=== PATIENT | female | born 1960 | race American Indian/Alaskan Native ===

== ENCOUNTER 2017-03-21 07:58 | Inpatient (IN) | payer SELFPAY ==
[2017-03-21] MEDS ORDERED: ZOFRAN ONE ×2 (08:26→14:42)
[2017-03-21 08:35] LABS: Basophils % (Auto) 0.6 % (0.0-1.8); Eosinophils % (Auto) 1.3 % (0.0-4.3); Hematocrit 43.3 % (30.3-42.9); Hemoglobin 14.4 gm/dl (10.1-14.3); Mean Corpuscular HGB Conc 33 % (30-34); Mean Corpuscular Hemoglobin 28 pg (28-32); Mean Corpuscular Volume 83 fl (79-97); Platelet Count 302 K/mm3 (140-440); Red Blood Count 5.21 M/mm3 (3.65-5.03); Red Cell Distribution Width 13.8 % (13.2-15.2); White Blood Count 6.1 K/mm3 (4.5-11.0)
[2017-03-21] MEDS ORDERED: ZOFRAN IV ONE ×2 (08:41→10:32)
[2017-03-21 08:49] LABS: Anion Gap 21 mmol/L; Blood Urea Nitrogen 19 mg/dL (7-17); Calcium 9.6 mg/dL (8.4-10.2); Carbon Dioxide 23 mmol/L (22-30); Chloride 98.7 mmol/L (98-107); Glucose 142 mg/dL (65-100); Potassium 4.2 mmol/L (3.6-5.0); Sodium 138 mmol/L (137-145)
--- NOTE | 2017-03-21 08:52 | XRay Report ---
CHEST ONE VIEW INDICATION: Chest pain, difficulty breathing. COMPARISON: 05/11/2011. FINDINGS: Portable, single, frontal chest radiograph demonstrates normal cardiomediastinal silhouette. Clear lungs. Slight patient rotation. Unremarkable bones. Extrinsic EKG leads. CONCLUSION: No acute disease in the chest. Thank you for the opportunity to participate in this patient's care.
[2017-03-21 10:02] LABS: Bacteria,Urine 1+ /HPF (Negative); Bilirubin,Urine NEG (Negative); Blood,Urine SM (Negative); Ketones,Urine NEG (Negative); Leukocyte Esterase,Urine TR (Negative); Nitrite,Urine NEG (Negative); Protein,Urine <15 mg/dL mg/dL (Negative); Urobilinogen,Urine < 2.0 mg/dL (<2.0)
[2017-03-21] MEDS ORDERED: NITRO-BID 2% TP ONE (10:32)
[2017-03-21] MEDS ORDERED: ASPIRIN PO ONE (10:32)
[2017-03-21] MEDS ORDERED: MORPHINE IV ONE (10:32)
[2017-03-21] MEDS ORDERED: NORMODYNE IV ONE (10:32)
[2017-03-21] MEDS ORDERED: NACL ONE (10:33)
--- NOTE | 2017-03-21 10:37 | Emergency Department Report ---
HPI - General Chief Complaint: Chest Pain Time Seen by Provider: 03/21/17 10:26 - HPI HPI: Room 26 The patient is a 56-year-old female presenting with a chief complaint of chest pain. The patient states her pain began yesterday morning but worsened 03:00 today. Patient describes pain as substernal and dull in nature. She states it "feels like someone is standing on my chest." Patient does admit to diaphoresis , shortness of breath and nausea/vomiting with chest pain. The patient currently gives her pain a score of 7/10. The patient states her last stress test occurred 6 years ago but she has never had a cardiac catheterization Location: Chest Duration: Constant since yesterday Quality: Dull Severity:7/10 Modifying factors: [see above] Context: [see above] Mode of transportation: Unknown ED Past Medical Hx - Past Medical History Previous Medical History?: Yes Hx Hypertension: Yes - Surgical History Past Surgical History?: Yes Additional Surgical History: C - section - Family History Family history: no significant - Social History Smoking Status: Never Smoker Substance Use Type: None - Medications Home Medications: Home Medications Medication Instructions Recorded Confirmed Last Taken Type Losartan [Cozaar] 50 mg PO QDAY 03/21/17 03/21/17 Unknown History ED Review of Systems ROS: Stated complaint: CHEST PAIN Other details as noted in HPI Comment: All other systems reviewed and negative Constitutional: diaphoresis Eyes: denies: eye pain, eye discharge, vision change ENT: denies: ear pain, throat pain Respiratory: shortness of breath Cardiovascular: chest pain Endocrine: no symptoms reported Gastrointestinal: nausea, vomiting Genitourinary: denies: urgency, dysuria, discharge Musculoskeletal: denies: back pain, joint swelling, arthralgia Skin: denies: rash, lesions Neurological: denies: headache, weakness, paresthesias Psychiatric: denies: anxiety, depression Hematological/Lymphatic: denies: easy bleeding, easy bruising Physical Exam - Physical Exam Vital Signs: Vital Signs 03/21/17 08:51 Respiratory 22 Rate O2 Sat by Pulse 98 Oximetry Physical Exam: GENERAL: The patient is well-developed well-nourished female lying on stretcher not appearing to be in acute distress. [] HEENT: Normocephalic. Atraumatic. Extraocular motions are intact. Patient has moist mucous membranes. NECK: Supple. Trachea midline CHEST/LUNGS: Clear to auscultation. There is no respiratory distress noted. HEART/CARDIOVASCULAR: Regular. There is tachycardia. There is no gallop rub or murmur. ABDOMEN: Abdomen is soft, nontender. Patient has normal bowel sounds. There is no abdominal distention. SKIN: There is no rash. There is no diaphoresis. NEURO: The patient is awake, alert, and oriented. The patient is cooperative. The patient has normal speech MUSCULOSKELETAL: There is no evidence of acute injury. ED Course Vital Signs 03/21/17 08:51 Respiratory 22 Rate O2 Sat by Pulse 98 Oximetry ED Medical Decision Making - Lab Data Result diagrams: 03/21/17 08:18 03/21/17 08:18 Laboratory Tests 03/21/17 03/21/17 03/21/17 08:18 08:18 09:15 WBC 6.1 RBC 5.21 H Hgb 14.4 H Hct 43.3 H MCV 83 MCH 28 MCHC 33 RDW 13.8 Plt Count 302 Lymph % (Auto) 25.7 Sharkey % (Auto) 9.0 H Eos % (Auto) 1.3 Baso % (Auto) 0.6 Lymph # 1.6 Sharkey # 0.6 Eos # 0.1 Baso # 0.0 Seg Neutrophils % 63.4 Seg Neutrophils # 3.9 Sodium 138 Potassium 4.2 Chloride 98.7 Carbon Dioxide 23 Anion Gap 21 BUN 19 H Creatinine 1.0 Estimated GFR > 60 BUN/Creatinine Ratio 19.00 Glucose 142 H Calcium 9.6 Troponin T < 0.010 Urine Color Colorless Urine Turbidity Clear Urine pH 7.0 Ur Specific [place] 1.004 Urine Protein <15 mg/dl Urine Glucose (UA) Neg Urine Ketones Neg Urine Blood Sm Urine Nitrite Neg Urine Bilirubin Neg Urine Urobilinogen < 2.0 Ur Leukocyte Esterase Tr Urine WBC (Auto) 5.0 Urine RBC (Auto) 26.0 U Epithel Cells (Auto) < 1.0 Urine Bacteria (Auto) 1+ - EKG Data -: EKG Interpreted by Me EKG shows normal: sinus rhythm Rate: tachycardia (116 bpm) - EKG Data When compared to previous EKG there are: previous EKG unavailable - Radiology Data Radiology results: report reviewed (CT chest), image reviewed (chest x-ray, CT chest) interpreted by me: Chest x-ray-no focal infiltrates, no pneumothorax CT chest (read by radiologist)-no evidence for pulmonary embolus. Unremarkable CT chest with contrast. - Differential Diagnosis ACS, hypertensive urgency, PE, aortic dissection Critical care attestation.: If time is entered above; I have spent that time in minutes in the direct care of this critically ill patient, excluding procedure time. ED Disposition Clinical Impression: Chest pain, Hypertensive urgency, Difficulty breathing Disposition: OP ADMITTED IP TO THIS HOSP Is pt being admited?: Yes Does the pt Need Aspirin: Yes Condition: Fair Instructions: Chest Pain (ED) Referrals: CHRISTOFER LINTON MD [Primary Care Provider] - 3-5 Days Time of Disposition: 11:31 (hospitalist paged)
[2017-03-21] MEDS ORDERED: MORPHINE ONE (11:00)
--- NOTE | 2017-03-21 11:03 | Admit Criteria Form ---
Admission Criteria Documentation: CARDIOLOGY GRG Clinical Indications for Admission to Inpatient Care ( Place 'X' for any and all applicable criteria): Hospital admission is needed for appropriate care of the patient because of ANY ONE of the following (1): [ ] I. Hemodynamic instability as indicated by ALL of the following (1)(2)(3) (4)(5) [ ]a) Vital signs or other findings not as expected for chronic patient condition or baseline [ ]b) Instability indicated by ANY ONE of the following: [ ]i) Hypotension [ ]ii) Symptomatic Tachycardia unresponsive to treatment ( e.g., analgesia, fluids, sedation as indicated) [ ]iii) Inadequate perfusion indicated by ANY ONE of the following: [ ] 1) Lactic acidosis (> 2 mmol/L) [ ] 2) New abnormal capillary refill (> 3 seconds) [ ] 3) Reduced urine output [ ] 4) New altered mental status [ ]iv) Orthostatic vital sign changes unresponsive to treatment (e.g., fluids) [ ]v) IV inotropic or vasopressor medication required to maintain adequate blood pressure or perfusion [ ] II. Severe heart failure as indicated by ANY ONE of the following(17)(18) [ ]a) Respiratory distress [ ]b) Hypotension [ ]c) Anasarca (refractory to outpatient therapy) [ ]d) Cardiac arrhythmias of immediate concern [ ]e) Myocardial ischemia [ ] III. Cardiac arrhythmias or findings of immediate concern indicated by ANY ONE of the following (19)(20): [ ] a) Heart rhythms that are inherently dangerous or unstable indicated by ANY ONE of the following (21)(22)(23): [ ] i) Resuscitated ventricular fibrillation or cardiac arrest [ ] ii) Ventricular escape rhythm [ ] iii) Sustained ventricular tachycardia (30 seconds or more of ventricular rhythm at greater than 100 beats per minute) [ ] iv) Nonsustained ventricular tachycardia and ANY ONE of the following: [ ] 1) Suspected cardiac ischemia as cause or consequence of ventricular tachycardia [ ] 2) In setting of acute myocarditis [ ] b) Unstable cardiac conduction defects indicated by ANY ONE of the following(23)(24)(25) [ ] i) Type II second-degree atrioventricular block [ ]ii) Third-degree atrioventricular block [ ]iii) New-onset left bundle branch block with suspected myocardial ischemia [ ]c) Any heart rhythm and ANY ONE of the following (21)(22)(26)(27) (28) [ ] i) Continuous long-term ECG monitoring needed (e.g., initiation of drug requiring monitoring for more than 24 hours) [ ] ii) Patient has automatic implanted cardioverter defibrillator that is repeatedly firing, malfunctioning, or in need of immediate adjustment of settings beyond the scope of ambulatory or observation care [ ]d) Heart rhythms of concern due to ANY ONE of the following: [ ] i) Hypotension [ ] ii) Respiratory distress [ ] iii) Association with other significant symptoms (e.g., bradycardia with syncope or ongoing dizziness, supraventricular tachycardia with chest pain (14)(15)(17) [ ] IV. Monitoring for cardiac contusion beyond the scope of observation care needed [A](30)(31)(32) [ ] V. Surgical or device complication (e.g., valve replacement complication , pacemaker dysfunction) (35)(41)(44)(45)(46) [ ] . Inpatient palliative care needed. [B](49) Also use Inpatient Palliative Care Criteria [ ] VII. Nonbacterial thrombotic (marantic) endocarditis (36)(43)(47)(48) [X] VIII. Cardiology condition, symptom, or finding for which emergency and observation care has failed or are not considered appropriate. [ ] IX. Acute valvular disease requiring inpatient as indicated by ANY ONE of the following (41) [ ]a) Acute valvular regurgitation (42) [ ]b) Noninfectious valvulitis (43) [ ]c) Obstructive valve thrombosis [ ]d) Paravalvular leak [ ]e) Other significant valvular disorder remaining after emergency or observation level of care (as appropriate) [ ]X. Pericardial disease requiring inpatient treatment as indicated by ANY ONE of the following (33)(34)(35)(36)(37) [ ]a) Suspected tamponade (38)(39)(40) [ ]b) Hemopericardium [ ]c) Other significant pericardial disorder remaining after emergency or observation level of care (as appropriate) [ ] XI. Cardiac ischemia beyond scope of emergency and observation care. [ ] XII. Hypertension requiring inpatient treatment as indicated by ANY ONE of the following (6)(7)(8) [ ]a) SBP greater than 220 mm Hg or DBP greater than 120 mmHg despite treatment [ ]b) SBP greater than 140 mm Hg or DBP greater than 100 mm Hg with evidence of acute end organ damage as indicated by ANY ONE of the following [ ] i) Altered mental status [ ] ii) Acute renal failure as indicated by new onset of ANY ONE of the following (9)(10)(11)(12)(13) [ ]1) 3-fold rise in serum creatinine from baseline [ ]2) Serum creatinine greater than 4 mg/dL ( 354 micromoles/L) with acute rise greater than 0.5 mg/dL (44.2 micromoles/L) [ ]3) Reduction of more than 75% in estimated glomerular filtration rate from baseline [ ]4) Estimated glomerular filtration rate less than 35 mL/min/1.73m2 (0.59 mL/sec/1.73m2) in child up to 18 years of age [ ]5) Cessation of urine output indicated by ALL of the following [ ]A. Adequate volume status [ ]B. Inadequate urine output as indicated by ANY ONE of the following [ ]a. Urine output less than 0.3 mL/kg/hr for 24 hours [ ]b. Anuria (urine output less than 0.1 mL/kg/hr) for 12 hours [ ] iii) Aortic dissection [ ] iv) Myocardial Ischemia [ ] v) Left ventricular heart failure [ ]vi) Retinal Hemorrhage [ ]vii) Other significant finding [ ]c) Hypertension in child requiring inpatient treatment as indicated by ALL of the following(14)(15)(16) [ ] i) Outpatient treatment not effective, not available, or not appropriate [ ]ii) SBP or DBP greater than 95th percentile for age [ ]iii) Evidence of acute end organ damage as indicated by ANY ONE of the following [ ]1) Altered mental status [ ]2) Acute renal failure as indicated by new onset of ANY ONE of the following(9)(10)(11)(12)(13) [ ]A. 3-fold rise in serum creatinine from baseline [ ]B. Serum creatinine greater than 4 mg/dL (354 micromoles/L) with acute rise greater than 0.5 mg/dL (44.2 micromoles/L) [ ]C. Reduction of more than 75% in estimated glomerular filtration rate from baseline [ ]D. Estimated glomerular filtration rate less than 35 mL/min/1.73m2 (0.59 mL/sec/1.73m2) in child up to 18 years of age [ ]E. Cessation of urine output indicated by ALL of the following [ ]a. Adequate volume status [ ]b. Inadequate urine output as indicated by ANY ONE of the following [ ]i) Urine output less than 0.3 mL/kg/hr for 24 hours [ ]ii) Anuria ( urine output less than 0.1 mL/kg/hr) for 12 hours [ ]3) Severe headache [ ]4) Visual disturbance [ ]5) Retinal hemorrhage [ ]6) Other significant finding [ ]XIII. Complications of transplanted heart indicated by ANY ONE of the following(61): [ ]a) Acute graft rejection requiring inpatient management (eg, intravenous immunosuppression)(62)(63) [ ]b) Acute graft heart failure indicated by ANY ONE of the following(64): [ ]i) Hemodynamic instability [ ]ii) Cardiac arrhythmias of immediate concern [ ]iii) Pulmonary edema that is very severe (eg, mechanical ventilation needed, imminent or likely, need for 100% oxygen to keep oxygen saturation above 90%) [ ]iv) Pulmonary edema that is persistent as indicated by ALL of the following: [ ]1) New need for oxygen therapy to keep oxygen saturation above 90% (or increased FiO2 need from baseline) [ ]2) Has not improved sufficiently with emergency department or observation care IV diuretics or other heart failure treatments[E] [ ]v) Altered mental status that is severe or persistent [ ]vi) Increased creatinine (new on laboratory test) with reduction of more than 50% in estimated glomerular filtration rate from baseline [ ]vii) Progressively (ongoing) rising creatinine (known from past laboratory test) with reduction of more than 25% in estimated glomerular filtration rate from baseline [ ]viii) Acute renal failure [ ]ix) Acute peripheral ischemia (eg, examination shows pulseless, cool, mottled, or cyanotic extremity) [ ]x) Pulmonary artery catheter monitoring needed [ ]xi) Other sign or symptom of heart failure requiring inpatient treatment (ie, too severe or not responsive to outpatient and observation care treatment) [ ]c) Infection requiring inpatient management (eg, Hemodynamic instability, need for intravenous antimicrobial treatment)(66)(67)(68)(69)(70) [ ]d) Cardiac allograft vasculopathy requiring inpatient management ( eg evidence of cardiac ischemia)(71) [ ]e) Other complication of transplanted heart (eg, stroke, severe pulmonary hypertension, severe valvular dysfunction) requiring inpatient management(72) The original [facility] [employer] content created by [facility] [employer] has been revised. The portions of the content which have been revised are identified through the use of italic text or in bold, and [facility] has neither reviewed nor approved the modified material. All other unmodified content is copyright [facility] [employer]. Please see references footnoted in the original [facility] [employer] edition 2016 Admission Criteria Met: Yes
--- NOTE | 2017-03-21 11:25 | Cat Scan Report ---
CTA CHEST: History: Chest pain, shortness of breath. Technique: Helical CT following IV contrast. Pulmonary embolus protocol. Sagittal and coronal reformatted images. Rotational MIP images. Findings: Contrast bolus is satisfactory. No pulmonary embolus is identified. The thyroid gland, tracheobronchial tree, esophagus, heart, pericardium, mediastinal vessels, lung reilly and bony thorax are unremarkable. Impression: No evidence for pulmonary embolus. Unremarkable CT chest with contrast.
[2017-03-21] MEDS ORDERED: DILAUDID ONE (14:41)
[2017-03-21] MEDS ORDERED: ZOFRAN IV PRN ×2 (14:44→14:45)
[2017-03-21] MEDS ORDERED: DILAUDID IV PRN (14:44)
[2017-03-21] MEDS ORDERED: TYLENOL PO PRN (14:45)
[2017-03-21] MEDS ORDERED: MILK OF MAGNESIA PO PRN (14:45)
[2017-03-21] MEDS ORDERED: AMBIEN PO PRN (14:45)
[2017-03-21] MEDS ORDERED: PERCOCET 5/325 PO PRN (14:45)
[2017-03-21] MEDS ORDERED: DULCOLAX PR PRN (14:45)
[2017-03-21] MEDS ORDERED: SODIUM CHLORIDE FLUSH SYRINGE 10 ML IV PRN (14:49)
[2017-03-21] MEDS ORDERED: NITROSTAT SL PRN (14:49)
[2017-03-21] MEDS ORDERED: LOVENOX SUB-Q SCH (15:00)
[2017-03-21] MEDS: COZAAR PO SCH (16:10)
[2017-03-21] MEDS: PEPCID PO SCH ×2 (16:10→22:16)
[2017-03-21 17:15] LABS: Creatine Kinase MB < 1.0 ng/mL (0.0-4.0)
[2017-03-21 17:17] LABS: Creatine Kinase 88 units/L (30-135)
[2017-03-21] MEDS: MORPHINE IV PRN (19:32)
[2017-03-21 21:51] LABS: Creatine Kinase 66 units/L (30-135)
[2017-03-21 22:05] LABS: Creatine Kinase MB < 1.0 ng/mL (0.0-4.0)
[2017-03-22] MEDS: MORPHINE IV PRN (01:13)
[2017-03-22 06:17] LABS: BUN/Creatinine Ratio 14.37; Calcium 8.9 mg/dL (8.4-10.2); Chloride 99.5 mmol/L (98-107); Potassium 4.3 mmol/L (3.6-5.0)
--- NOTE | 2017-03-22 07:24 | Event Note ---
Date: 03/21/17 See H/p in reports Acute coronary syndrome HTN Mild Hematuria-non specific
[2017-03-22] MEDS ORDERED: LEXISCAN IV ONE (08:48)
--- NOTE | 2017-03-22 09:11 | History and Physical Report ---
CHIEF COMPLAINT: Left-sided chest pain. HISTORY OF PRESENT ILLNESS: A 56-year-old female who presents with left-sided chest pain since yesterday morning, worse since 3 a.m. today. Substernal and dull in character. Pain is about 7/10. No diaphoresis. No palpitations. Associated with some nausea and shortness of breath. Pain rated is about 7 on a scale of 1-10. Her last stress test six years ago. No cardiac catheterization. No exacerbating or relieving factors. PAST MEDICAL HISTORY: Significant for hypertension. PAST SURGICAL HISTORY: . FAMILY HISTORY: No significant family history. SOCIAL HISTORY: She does not smoke. CURRENT MEDICATIONS: Losartan 50 mg once a day. REVIEW OF SYSTEMS: CONSTITUTIONAL: No weight loss, no weight gain, no fever, no chills. HEENT: No sore throat. No postnasal drip. No diplopia. CARDIOVASCULAR AND RESPIRATORY: As mentioned in history of present illness. No cough, no wheezing. GASTROINTESTINAL: Some nausea present. No vomiting. GENITOURINARY: No dysuria. No flank pain. MUSCULOSKELETAL: No joint pains. CENTRAL NERVOUS SYSTEM: No syncope, no seizures. SKIN: No rash. PSYCHIATRIC: No depression. LYMPHATIC AND HEMATOLOGIC: Denies easy bleeding or bruising. A 14-point review of systems is done. PHYSICAL EXAMINATION: GENERAL: Middle-aged female, obese, cooperative during examination. VITAL SIGNS: Blood pressure is 129/78, temperature 98.1, pulse is 84, respirations 20. HEENT: Unremarkable. Pupils equal and reactive. NECK: Supple, no lymphadenopathy, no thyromegaly. LUNGS: Clear to auscultation and percussion. Good air entry. CARDIOVASCULAR: S1, S2 heard. No gallop, no murmur, no rub. Apical impulse in left fifth intercostal space and midclavicular line. ABDOMEN: Soft and benign. No hepatosplenomegaly. No guarding, no rigidity. Hernial orifices are normal. EXTREMITIES: Good pedal pulses. No pedal edema. CENTRAL NERVOUS SYSTEM: Alert and oriented x 4, nonfocal exam. LABORATORY DATA AND DIAGNOSTIC STUDIES: EKG shows sinus tachycardia, heart rate of [address] chest, no evidence of pulmonary embolism, unremarkable CT chest, noncontrast. Chest x-ray, no focal infiltrates. Labs reviewed. White count is 6100, hemoglobin is 14.4, hematocrit is 43.3, platelet count is 302,000. Cardiac enzymes were negative. Glucose is 142 and BUN is 19, creatinine is 1.0. Urine shows RBCs 26 and WBC is 5.0. ASSESSMENT AND PLAN: 1. Acute coronary syndrome, the patient to get cardiac enzymes and Lexiscan in the morning. 2. Hypertension, well controlled. Continue losartan 150 mg daily. 3. Hematuria, mild. - really nonspecific. We will not address the problem.. The patient is asymptomatic. The patient to follow up with PCP regarding RBCs in the urine. 4. Deep venous thrombosis prophylaxis, Lovenox 40 mg subcutaneous daily. JOB# [id number] AMITA/FARZANA CARRASQUILLO
[2017-03-22] MEDS ORDERED: ECOTRIN PO SCH (10:00)
[2017-03-22] MEDS: PEPCID PO SCH (11:15)
[2017-03-22] MEDS: COZAAR PO SCH (11:16)
[2017-03-22] MEDS ORDERED: PNEUMOVAX 23 IM ONE (12:00)
[2017-03-22] MEDS ORDERED: FLUARIX QUAD 2016-2017(36 MOS+) IM ONE (12:00)
[2017-03-22 14:36] VITALS: BP 161/83
--- NOTE | 2017-03-22 16:43 | Discharge Summary ---
Providers - Providers Date of Admission: 03/21/17 11:42 Date of discharge: 03/22/17 Attending physician: NIHARIKA TINEO 03/21/17 Consult to Cardiac Rehabilitation [CONS] Routine Reason For Exam: Phase I Primary care physician: CHRISTOFER LINTON Hospitalization Condition: Fair Disposition: DISCHARGED TO HOME OR SELFCARE Core Measure Documentation - Palliative Care Palliative Care/ Comfort Measures: Not Applicable - Core Measures Any of the following diagnoses?: none Exam - Constitutional Vitals: Temp Pulse Resp BP Pulse Ox 98.2 F 89 18 161/83 86 03/22/17 14:21 03/22/17 14:21 03/22/17 14:21 03/22/17 14:21 03/22/17 14:44 General appearance: Present: no acute distress, well-nourished - EENT Eyes: Present: PERRL, EOM intact - Neck Neck: Present: supple, normal ROM - Respiratory Respiratory effort: normal Respiratory: negative: rales, rhonchi, wheezing - Cardiovascular Rhythm: regular Heart Sounds: Present: S1 & S2 - Extremities Extremities: no ischemia, pulses intact, pulses symmetrical Peripheral Pulses: within normal limits - Abdominal General gastrointestinal: Present: soft, non-tender, non-distended, normal bowel sounds - Integumentary Integumentary: Present: clear, warm - Musculoskeletal Musculoskeletal: strength equal bilaterally - Psychiatric Psychiatric: appropriate mood/affect, cooperative - Neurologic Neurologic: CNII-XII intact, moves all extremities Plan Activity: no restrictions Diet: low salt Follow up with: CHRISTOFER LINTON MD [Primary Care Provider] - 3-5 Days Prescriptions: Famotidine [Pepcid] 20 mg PO BID #20 tablet Losartan [Cozaar] 50 mg PO QDAY #30 tablet oxyCODONE /ACETAMINOPHEN [Percocet 5/325 mg] 1 tab PO Q12H PRN #10 tablet PRN Reason: Pain, Moderate (4-6)
[2017-03-22] MEDS ORDERED: LOVENOX SUB-Q SCH (22:00)
--- NOTE | 2017-03-23 02:13 | Treadmill Report ---
REASON FOR STUDY: Chest pain. DATE OF STUDY: 03/22/2017. READING PHYSICIAN: Mario Ambrocio M.D. IMAGING PROTOCOL: The patient received 10 mCi of Technetium 99m Tetrofosmin for resting image and 28 mCi of Technetium 99m Tetrofosmin for stress imaging. The imaging for the whole procedure was completed 30-90 minutes following the initial injection of Technetium 99m tetrofosmin. The SPECT imaging in the 180 degree arc was performed in the right anterior oblique projection. Computerized reconstruction of the images was performed for analysis. IMAGING RESULTS: Normal cavity size from stress to rest. Normal distribution of radionuclide in the anterior, inferior, septal, and apical regions. Gated SPECT, EF of 60-70% with no wall motion abnormalities. The patient infused Lexiscan with no EKG changes. SUMMARY: 1. Negative Lexiscan EKG. 2. Normal rest and stress myocardial perfusion, no significant ischemia noted. Gated SPECT, EF 67%. [facility]# [id number] RACHELL/FARZANA
== END 2017-03-22 17:15 | disposition home or self-care (01) | DRG 311 ==
LOC: ED 07:58 → 4A 11:42
PROVIDERS: ADMIT Internal Medicine; ATTEND Internal Medicine
PROC: 4A02XM4 Measurement of Cardiac Total Activity, External Approach (ICD-10-PCS; principal; 2017-03-21)
PROC: 3E033HZ Introduction of Radioactive Substance into Peripheral Vein, Percutaneous Approach (ICD-10-PCS; 2017-03-21)
DX: I24.9 Acute ischemic heart disease, unspecified (principal); R31.9 Hematuria, unspecified; I16.0 Hypertensive urgency
CPT/HCPCS: 36415; 71010; 71275; 78452; 80048; 81001; 82550; 82553; 84484; 85025; 90686; 90732; 93005; 93010; 93017; 96372; 96374; 96375; 96376; A9502; J1170; J1650; J2270; J2405; J2785; Q9967

== ENCOUNTER 2017-03-27 11:04 | Inpatient (IN) | payer SELFPAY ==
[2017-03-27] MEDS ORDERED: NARCAN 0.4 MG/1 ML ONE (11:20)
[2017-03-27] MEDS ORDERED: ZOFRAN ONE (11:20)
[2017-03-27] MEDS ORDERED: ZOFRAN IV ONE (11:40)
[2017-03-27] MEDS ORDERED: NARCAN 0.4 MG/1 ML IV ONE (11:40)
[2017-03-27] MEDS ORDERED: NACL 0.9% 1000 ML 1,000 ML IV ONE ×2 (11:45→15:42)
[2017-03-27] MEDS ORDERED: NORMODYNE IV ONE (11:53)
--- NOTE | 2017-03-27 11:53 | Emergency Department Report ---
ED General Adult HPI - General Chief complaint: Overdose Stated complaint: POSS OVERDOSE Time Seen by Provider: 03/27/17 11:45 Source: family, EMS Mode of arrival: Ambulatory Limitations: Altered Mental Status - History of Present Illness Onset/Timin -: Gradual, days(s) Radiation: non-radiation Consistency: constant Improves with: none Worsens with: none Associated Symptoms: weakness. denies: confusion, chest pain, cough, diaphoresis, fever/chills, headaches, loss of appetite, malaise, nausea/vomiting , rash, shortness of breath, syncope Treatments Prior to Arrival: none - Related Data Home Medications Medication Instructions Recorded Confirmed Last Taken Baclofen [Lioresal] 10 mg PO BID 03/27/17 03/27/17 03/27/17 Previous Rx's Medication Instructions Recorded Last Taken Type Famotidine [Pepcid] 20 mg PO BID #20 tablet 03/22/17 03/27/17 Rx Losartan [Cozaar] 50 mg PO QDAY #30 tablet 03/22/17 03/27/17 Rx Zolpidem [Ambien] 5 mg PO QHS PRN #7 tablet 03/22/17 03/27/17 Rx oxyCODONE /ACETAMINOPHEN [Percocet 1 tab PO Q12H PRN #10 tablet 03/22/17 Rx 5/325 mg] Allergies Allergy/AdvReac Type Severity Reaction Status Date / Time No Known Allergies Allergy Verified 03/21/17 08:39 ED Review of Systems ROS: Stated complaint: POSS OVERDOSE Other details as noted in HPI Comment: All other systems reviewed and negative ED Past Medical Hx - Past Medical History Hx Hypertension: Yes Hx Congestive Heart Failure: No Hx Diabetes: No Hx Asthma: No Hx COPD: No Hx HIV: No - Surgical History Additional Surgical History: C - section - Social History Smoking Status: Never Smoker - Medications Home Medications: Home Medications Medication Instructions Recorded Confirmed Last Taken Type Famotidine [Pepcid] 20 mg PO BID #20 tablet 03/22/17 03/27/17 03/27/17 Rx Losartan [Cozaar] 50 mg PO QDAY #30 tablet 03/22/17 03/27/17 03/27/17 Rx Zolpidem [Ambien] 5 mg PO QHS PRN #7 tablet 03/22/17 03/27/17 03/27/17 Rx oxyCODONE /ACETAMINOPHEN [Percocet 1 tab PO Q12H PRN #10 tablet 03/22/1703/27/17 Rx 5/325 mg] Baclofen [Lioresal] 10 mg PO BID 03/27/17 03/27/17 03/27/17 History ED Physical Exam - General Limitations: Altered Mental Status General appearance: lethargic - Head Head exam: Present: atraumatic, normocephalic - Eye Eye exam: Present: normal appearance - ENT ENT exam: Present: normal exam, mucous membranes moist - Neck Neck exam: Present: normal inspection - Respiratory Respiratory exam: Present: normal lung sounds bilaterally. Absent: respiratory distress - Cardiovascular Cardiovascular Exam: Present: regular rate, normal rhythm. Absent: systolic murmur, diastolic murmur, rubs, gallop - GI/Abdominal GI/Abdominal exam: Present: soft, normal bowel sounds - Extremities Exam Extremities exam: Present: normal inspection - Back Exam Back exam: Present: normal inspection - Neurological Exam Neurological exam: Present: alert, oriented X3 - Psychiatric Psychiatric exam: Present: normal affect, normal mood - Skin Skin exam: Present: warm, dry, intact, normal color. Absent: rash ED Course Vital Signs 03/27/17 03/27/17 03/27/17 11:19 11:21 11:30 Temperature 98.2 F Pulse Rate 77 73 76 Respiratory 18 11 L 11 L Rate Blood Pressure 204/99 204/99 O2 Sat by Pulse 98 99 Oximetry 03/27/17 03/27/17 03/27/17 11:47 12:07 12:16 Temperature Pulse Rate 88 Respiratory 18 Rate Blood Pressure 209/99 193/103 O2 Sat by Pulse 98 99 Oximetry 03/27/17 03/27/17 03/27/17 12:30 13:00 13:30 Temperature Pulse Rate 66 64 62 Respiratory 10 L 10 L 10 L Rate Blood Pressure 148/85 137/82 148/76 O2 Sat by Pulse 98 97 Oximetry 03/27/17 03/27/17 03/27/17 14:00 14:30 15:00 Temperature Pulse Rate 66 87 85 Respiratory 10 L 11 L 11 L Rate Blood Pressure 142/82 181/93 186/99 O2 Sat by Pulse 99 99 99 Oximetry 03/27/17 03/27/17 15:30 16:00 Temperature Pulse Rate 95 H 104 H Respiratory 12 15 Rate Blood Pressure 193/119 193/84 O2 Sat by Pulse 100 Oximetry ED Medical Decision Making - Lab Data Result diagrams: 03/27/17 11:51 - [facility] and recommended [facility] for taking the 17 baclofen , lasb neg , tylenol and asa level negative, head ct and cxr negative , discuss case with dr. duarte and agree with plan for admission. Critical Care Time: Yes Critical care time in (mins) excluding proc time.: 35 Critical care attestation.: If time is entered above; I have spent that time in minutes in the direct care of this critically ill patient, excluding procedure time. ED Disposition Clinical Impression: Overdose of analgesic Disposition: OP ADMITTED IP TO THIS HOSP Is pt being admited?: Yes Does the pt Need Aspirin: No Condition: Good Referrals: PRIMARY CARE, [Primary Care Provider] - 3-5 Days Time of Disposition: 17:46
[2017-03-27 12:21] LABS: Basophils % (Auto) 0.2 % (0.0-1.8); Hematocrit 39.6 % (30.3-42.9); Hemoglobin 13.2 gm/dl (10.1-14.3); Mean Corpuscular HGB Conc 33 % (30-34); Mean Corpuscular Hemoglobin 28 pg (28-32); Mean Corpuscular Volume 83 fl (79-97); Platelet Count 262 K/mm3 (140-440); Red Blood Count 4.75 M/mm3 (3.65-5.03); White Blood Count 6.9 K/mm3 (4.5-11.0)
[2017-03-27 12:31] LABS: INR 1.06 (0.87-1.13)
[2017-03-27 12:54] LABS: Creatine Kinase MB 1.1 ng/mL (0.0-4.0)
[2017-03-27 12:55] LABS: Creatine Kinase 71 units/L (30-135)
--- NOTE | 2017-03-27 13:05 | Cat Scan Report ---
CT HEAD WITHOUT CONTRAST INDICATION: Altered mental status, overdose. COMPARISON: None similar. FINDINGS: Noncontrast head CT demonstrates age appropriate, symmetric, mild bifrontal sulcal enlargement. Normal ventricles with cavum septum pellucidum and vergae. Focal dilatation of right occipital horn up to 1.7 cm as on axial image 31, series 2 appears chronic. No definite acute infarct, hemorrhage, mass effect or midline shift. No abnormal extra axial fluid collections. Normal posterior fossa with preserved basilar cisterns. Normal eye globes. 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 Otherwise clear imaged paranasal sinuses and mastoid air cells. Normal calvarium and scalp. Numerous missing teeth. CONCLUSION: No acute intracranial CT abnormality with few incidental findings, as above. Thank you for the opportunity to participate in this patient's care.
--- NOTE | 2017-03-27 16:00 | XRay Report ---
CHEST ONE VIEW INDICATION: Medical clearance psych. COMPARISON: 03/21/2017. FINDINGS: Portable, single, frontal chest radiograph demonstrates normal cardiomediastinal silhouette. Clear lungs. Unremarkable bones. Extrinsic EKG leads. CONCLUSION: No acute disease in the chest. Thank you for the opportunity to participate in this patient's care.
[2017-03-27] MEDS ORDERED: APRESOLINE IV ONE (21:57)
[2017-03-27] MEDS ORDERED: PERCOCET 5/325 PO PRN (22:01)
[2017-03-27] MEDS ORDERED: TYLENOL PO PRN (22:02)
[2017-03-27] MEDS ORDERED: DULCOLAX PR PRN (22:02)
[2017-03-27] MEDS ORDERED: ZOFRAN IV PRN (22:02)
[2017-03-27] MEDS ORDERED: MILK OF MAGNESIA PO PRN (22:02)
--- NOTE | 2017-03-27 22:05 | Event Note ---
Date: 03/27/17 See H/p in reports
[2017-03-27] MEDS ORDERED: PEPCID IV ONE (22:41)
[2017-03-27] MEDS ORDERED: PEPCID ONE (22:44)
[2017-03-27] MEDS: PEPCID PO SCH (22:50)
[2017-03-28] MEDS ORDERED: APRESOLINE IV PRN (00:18)
[2017-03-28] MEDS: D5NS 1,000 ML IV SCH ×2 (00:36→10:47)
[2017-03-28] MEDS ORDERED: APRESOLINE IV ONE (00:50)
[2017-03-28] MEDS ORDERED: NITRO-BID 2% TP ONE (00:50)
[2017-03-28 05:49] LABS: Basophils % (Auto) 0.3 % (0.0-1.8); Eosinophils % (Auto) 0.1 % (0.0-4.3); Hematocrit 36.7 % (30.3-42.9); Hemoglobin 12.1 gm/dl (10.1-14.3); Mean Corpuscular HGB Conc 33 % (30-34); Mean Corpuscular Hemoglobin 28 pg (28-32); Mean Corpuscular Volume 84 fl (79-97); Platelet Count 260 K/mm3 (140-440); Red Blood Count 4.37 M/mm3 (3.65-5.03); White Blood Count 9.2 K/mm3 (4.5-11.0)
[2017-03-28 05:58] LABS: Alanine Aminotransferase 12 units/L (7-56); Albumin 3.5 g/dL (3.9-5); Albumin/Globulin Ratio 1.1 %; Alkaline Phosphatase 72 units/L (35-129); Anion Gap 17 mmol/L; BUN/Creatinine Ratio 13.33; Blood Urea Nitrogen 12 mg/dL (7-17); Calcium 8.9 mg/dL (8.4-10.2); Carbon Dioxide 25 mmol/L (22-30); Chloride 104.8 mmol/L (98-107); Glucose 141 mg/dL (65-100); Potassium 4.1 mmol/L (3.6-5.0); Sodium 143 mmol/L (137-145); Total Protein 6.7 g/dL (6.3-8.2)
--- NOTE | 2017-03-28 06:38 | Admit Criteria Form ---
Admission Criteria Documentation: DRUG INGESTION OR OVERDOSE Clinical Indications for Admission to Inpatient Care ( Place 'X' for any and all applicable criteria): Admission is indicated for severe toxicity as indicated by ANY ONE of the following(1)(2)(3)(4)(5)(6): [ X]I. Inpatient admission required rather than observation care (Also use Drug Ingestion or Overdose: Observation Care guideline as appropriate) because of ANY ONE of the following: [ ]a) Altered mental status that is severe or persistent [ ]b) Clinical finding (eg, metabolic acidosis, hypoglycemia, bradycardia) that is severe or persistent [ ]c) Toxic drug level that is persistent [ ]d) Psychiatric risk status not acceptable for outpatient management [ ]e) Continuous intravenous infusion of anticoagulation, platelet inhibitor, vasoactive, or antiarrhythmic medication (15)(16) [X ]f) Other condition, treatment or monitoring requiring inpatient admission [ ]II. Respiratory abnormalities [ ]III. Specific finding indicating severe and likely prolonged drug toxicity [ ]IV. Hemodynamic instability [ ]V. Dangerous arrhythmia [ ]. Hypertension requiring inpatient treatment Extended stay beyond goal length of stay may be needed for (4): [ ]a) Neurologic or respiratory compromise [ ]b) Hemodynamic instability [ ]c) Persistent toxic drug levels (25) [ ]d) Severe drug toxicities or complications [ ]e) Ongoing antidote treatment (eg, acetaminophen overdose)(5) [ ]f) Older patients(65 years or older) The original [facility] content created by [employer] has been revised. The portions of the content which have been revised are identified through the use of italic text or in bold, and [facility] has neither reviewed nor approved the modified material. All other unmodified content is copyright [facility] [email or web address]. Please see references footnoted in the original [facility] [employer] edition 2016 Admission Criteria Met: Yes
[2017-03-28 08:42] VITALS: BP 166/74
--- NOTE | 2017-03-28 09:57 | History and Physical Report ---
CHIEF COMPLAINT: Excess intake of Baclofen by mistake. HISTORY OF PRESENT ILLNESS: A 56-year-old -[place] female known to me from the past, comes in for possible intake of 13 pills of baclofen ____. The patient slightly drowsy apparently at the time of admission in the ER. At the time of my talking to her, the patient was very alert and oriented and denies taking any excess baclofen. The patient states that she is tired and feels weak, but denies excess baclofen intake totally. She takes baclofen twice a day. No nausea, no vomiting, no diarrhea. PAST MEDICAL HISTORY: Significant for hypertension, recent evaluation for chest pain. Gastroesophageal reflux disease, obesity. CURRENT MEDICATIONS: Famotidine 20 mg twice a day, losartan 50 mg once a day, zolpidem 5 mg p.o. at bedtime, Percocet 1 tablet p.o. q. 12, . PAST SURGICAL HISTORY: . SOCIAL HISTORY: Does not smoke. FAMILY HISTORY: Hypertension. REVIEW OF SYSTEMS: Significant for being drowsy and feeling weak. Otherwise, the review of systems is essentially negative. A 14-point review of system is done. No nausea, no vomiting. No fever, no chills. No weight loss. No postnasal drip. All 14 review of system reviewed. PHYSICAL EXAMINATION: GENERAL: On exam ____ female lying in bed and talking appropriately. VITAL SIGNS: Her initial blood pressure is 204/99 came down to 181/93, temperature is 98.2, pulse is 72, respirations are 18. HEENT: Unremarkable. Pupils equal and reactive. NECK: Supple, no lymphadenopathy, no thyromegaly. LUNGS: Clear to auscultation and percussion. CARDIOVASCULAR: S1, S2 heard. No gallop, no murmur, no rub. Apical impulse in left fifth intercostal space and midclavicular line. ABDOMEN: Soft and benign. No hepatosplenomegaly. No guarding, no rigidity. Hernial orifices are normal. EXTREMITIES: Good pedal pulses. No pedal edema. CENTRAL NERVOUS SYSTEM: Alert and oriented x 4. Nonfocal exam. SKIN: Normal. LABORATORY DATA: White count is 6900, H and H is 13.2 and 39.6, platelet count is 262,000. EKG was normal. Chest x-ray normal. ASSESSMENT AND PLAN: Baclofen overdose. The patient denies any baclofen overdose. The patient was slightly drowsy at the time of admission. During my examination alert and oriented x 4. Because Poison Control was advised the patient was being admitted for observation. IV fluids in the meantime. 1. Hypertension. Continue losartan. 2. Gastroesophageal reflux disease. Continue famotidine 20 b.i.d. 3. Deep venous thrombosis prophylaxis, Lovenox 40 mg subQ daily. JOB# [id number] VSM/NTS
[2017-03-28] MEDS ORDERED: COZAAR PO SCH (10:00)
[2017-03-28] MEDS ORDERED: LOVENOX SUB-Q SCH (10:00)
[2017-03-28] MEDS: PEPCID PO SCH (10:50)
--- NOTE | 2017-03-28 11:42 | Discharge Summary ---
Providers - Providers Date of Admission: 03/27/17 22:02 Date of discharge: 03/28/17 Attending physician: SHALOM SCHNEIDER Primary care physician: GUITAR REPAIR TECHNICIAN Hospitalization Reason for admission: suspected drug overdose Condition: Good Hospital course: At the time of my evaluation patient is fully alert oriented he denies any suicidal ideations . She denies that she overdosed on any medications. She says she was here 1 or 2 weeks ago and she was given Ambien suspects Ambien made her groggy. She sees Dr. Brown. Her only complaint at this time is nausea and she says she has history of heartburn. Blood pressure is moderately high at 160 systolic. However she was not started on her home medication She is medically stable to be discharged. Would increase her Cozaar 100 mg. I would also given a prescription for PPI and Zofran when necessary and she will see her primary care patient in 5 days. She is medically stable to be discharged Final diagnosis Suspected mild drug overdose with baclofen Hypertension Gastroesophageal reflux disease Nausea and occasional vomiting Disposition: DISCHARGED TO HOME OR SELFCARE Core Measure Documentation - Palliative Care Palliative Care/ Comfort Measures: Not Applicable - Core Measures Any of the following diagnoses?: none Exam - Constitutional Vitals: Temp Pulse Resp BP Pulse Ox 98.5 F 103 H 20 166/74 98 03/28/17 07:00 03/28/17 10:49 03/28/17 07:00 03/28/17 10:49 03/28/17 07:00 General appearance: Present: no acute distress - EENT Eyes: Present: PERRL, EOM intact ENT: hearing intact, clear oral mucosa - Neck Neck: Present: supple, normal ROM - Respiratory Respiratory effort: normal Respiratory: bilateral: CTA - Cardiovascular Rhythm: regular Heart Sounds: Present: S1 & S2 - Extremities Extremities: No edema - Abdominal General gastrointestinal: Present: soft, non-tender. Absent: hepatomegaly, splenomegaly - Rectal Rectal Exam: deferred - Integumentary Integumentary: Present: clear - Musculoskeletal Musculoskeletal: strength equal bilaterally - Psychiatric Psychiatric: appropriate mood/affect, intact judgment & insight - Neurologic Neurologic: no focal deficits Plan Activity: no restrictions, advance as tolerated Weight Bearing Status: Full Weight Bearing Diet: low fat, low cholesterol, low salt Follow up with: PRIMARY CARE, [Primary Care Provider] - 3-5 Days Prescriptions: Losartan [Cozaar] 100 mg PO QDAY #30 tablet Ondansetron [Zofran TAB] 4 mg PO Q8HR PRN #10 tablet PRN Reason: Nausea Pantoprazole [Protonix TAB] 40 mg PO QDAY #30 tablet
== END 2017-03-28 16:35 | disposition home or self-care (01) | DRG 918 ==
LOC: ED 11:04 → 3A 22:02
PROVIDERS: ADMIT Internal Medicine; ATTEND Internal Medicine
DX: T42.8X1A Poisoning by antiparkinsonism drugs and other central muscle-tone depressants, accidental (unintentional), initial encounter (principal); Z68.45 Body mass index [BMI] 70 or greater, adult; T39.91XA Poisoning by unspecified nonopioid analgesic, antipyretic and antirheumatic, accidental (unintentional), initial encounter; I10 Essential (primary) hypertension; K21.9 Gastro-esophageal reflux disease without esophagitis; E66.9 Obesity, unspecified; Z82.49 Family history of ischemic heart disease and other diseases of the circulatory system; Y92.89 Other specified places as the place of occurrence of the external cause
CPT/HCPCS: 36415; 70450; 71010; 80053; 80320; 82550; 82553; 83930; 84484; 85025; 85610; 93005; 93010; 96361; 96374; 96375; G0480; J0360; J1650; J2310; J2405; J7030; J7042

== ENCOUNTER 2019-04-10 13:48 | Emergency (ER) | payer OTHER ==
[2019-04-10] MEDS ORDERED: CATAPRES PO ONE (13:56)
--- NOTE | 2019-04-10 13:56 | Emergency Department Report ---
Blank Doc - Documentation Documentation: This is a 58-year-old female that presents with left sided headache and HTN. History of HTN but has been out of her medications. This initial assessment/diagnostic orders/clinical plan/treatment(s) is/are subject to change based on patient's health status, clinical progression and re- assessment by fellow clinical providers in the ED. Further treatment and workup at subsequent clinical providers discretion. Patient/guardians urged not to elope from the ED as their condition may be serious if not clinically assessed and managed. Initial orders include: 1- Patient sent to MAIN ED for further evaluation and treatment 2- CT head 3- labs 4- Catapress 5- RN to repeat vitals
[2019-04-10] MEDS ORDERED: CATAPRES ONE (13:58)
--- NOTE | 2019-04-10 14:29 | Cat Scan Report ---
CT HEAD WITHOUT CONTRAST: HISTORY: Headache, hypertension. TECHNIQUE: Sequential 2.5mm CT images. COMPARISON: 03/27/17. FINDINGS: Cerebral Parenchyma: Within normal limits. Cerebellum: Within normal limits. Brainstem: Within normal limits. Ventricles: Ventricular size is within normal limits. Mild dilatation of the right occipital horn is again noted measuring up to 2.7 x 2.1 cm. The etiology of this is unclear. Sella: Normal. Extra-axial spaces: Normal. Basal Cisterns: Normal. Intracranial Hemorrhage: None. Midline Shift: None. Calvarium: Normal. Sinuses: Normal. Mastoid Air Cells: Normal. Visualized Orbits: Normal. IMPRESSION: No acute intracranial process is identified. No change since 03/27/17.
[2019-04-10 14:59] LABS: Basophils % (Auto) 0.5 % (0.0-1.8); Eosinophils # (Auto) 0.2 K/mm3 (0.0-0.4); Eosinophils % (Auto) 2.7 % (0.0-4.3); Hematocrit 39.1 % (30.3-42.9); Hemoglobin 13.1 gm/dl (10.1-14.3); Lymphocytes # (Auto) 1.8 K/mm3 (1.2-5.4); Lymphocytes % (Auto) 26.3 % (13.4-35.0); Mean Corpuscular HGB Conc 34 % (30-34); Mean Corpuscular Volume 84 fl (79-97); Monocytes # (Auto) 0.5 K/mm3 (0.0-0.8); Monocytes % (Auto) 7.8 % (0.0-7.3); Platelet Count 283 K/mm3 (140-440); Red Blood Count 4.66 M/mm3 (3.65-5.03); Red Cell Distribution Width 13.7 % (13.2-15.2)
[2019-04-10 15:51] LABS: Alanine Aminotransferase 13 units/L (7-56); Albumin 3.8 g/dL (3.9-5); BUN/Creatinine Ratio 14; Blood Urea Nitrogen 15 mg/dL (7-17); Calcium 9.4 mg/dL (8.4-10.2); Hemolysis Index 6
[2019-04-10 16:01] LABS: Bilirubin,Direct < 0.2 mg/dL (0-0.2)
[2019-04-10] MEDS ORDERED: FIORICET PO ONE (16:04)
--- NOTE | 2019-04-10 16:08 | Emergency Department Report ---
ED General Adult HPI - General Chief complaint: Neuro Symptoms/Deficit Stated complaint: FACE/SHOULDER/EYE PAIN Time Seen by Provider: 04/10/19 13:54 Source: patient Mode of arrival: Ambulatory Limitations: No Limitations - History of Present Illness Initial comments: The patient presents to the emergency department for elevated blood pressure for the last 2 weeks.The patient also complains of a frontal JOHN that is throbbing in nature without radiation. Patient denies CP,SOB, or Abdominal pain. The patient states she no longer has insurance and has not been able to get her meds. The JOHN is not the worse of her life -: Gradual Location: head Radiation: non-radiation Severity scale (0 -10): 7 Improves with: none Worsens with: none Associated Symptoms: denies other symptoms Treatments Prior to Arrival: none - Related Data Previous Rx's Medication Instructions Recorded Last Taken Type Losartan [Cozaar] 100 mg PO QDAY #30 tablet 03/28/17 Unknown Rx Ondansetron [Zofran TAB] 4 mg PO Q8HR PRN #10 tablet 03/28/17 Unknown Rx Pantoprazole [Protonix TAB] 40 mg PO QDAY #30 tablet 03/28/17 Unknown Rx amLODIPine [Norvasc] 10 mg PO DAILY #30 tab 04/10/19 Unknown Rx Allergies Allergy/AdvReac Type Severity Reaction Status Date / Time No Known Allergies Allergy Verified 03/21/17 08:39 ED Review of Systems ROS: Stated complaint: FACE/SHOULDER/EYE PAIN Other details as noted in HPI Comment: All other systems reviewed and negative Constitutional: denies: chills, fever Eyes: denies: eye pain, eye discharge, vision change ENT: denies: ear pain, throat pain Respiratory: denies: cough, shortness of breath, wheezing Cardiovascular: denies: chest pain, palpitations Endocrine: no symptoms reported Gastrointestinal: denies: abdominal pain, nausea, diarrhea Genitourinary: denies: urgency, dysuria, discharge Musculoskeletal: denies: back pain, joint swelling, arthralgia Skin: denies: rash, lesions Neurological: headache. denies: weakness, paresthesias Psychiatric: denies: anxiety, depression Hematological/Lymphatic: denies: easy bleeding, easy bruising ED Past Medical Hx - Past Medical History Hx Hypertension: Yes Hx Heart Attack/AMI: No Hx Congestive Heart Failure: No Hx Diabetes: No Hx Deep Vein Thrombosis: No Hx Liver Disease: No Hx Arthritis: Yes (LEFT KNEE) Hx Asthma: No Hx COPD: No Hx Tuberculosis: No Hx HIV: No - Surgical History Past Surgical History?: Yes Hx Coronary Stent: No Hx Pacemaker: No Hx Internal Defibrillator: No Additional Surgical History: C - section - Social History Smoking Status: Never Smoker - Medications Home Medications: Home Medications Medication Instructions Recorded Confirmed Last Taken Type Losartan [Cozaar] 100 mg PO QDAY #30 tablet 03/28/17 Unknown Rx Ondansetron [Zofran TAB] 4 mg PO Q8HR PRN #10 tablet 03/28/17 Unknown Rx Pantoprazole [Protonix TAB] 40 mg PO QDAY #30 tablet 03/28/17 Unknown Rx amLODIPine [Norvasc] 10 mg PO DAILY #30 tab 04/10/19 Unknown Rx ED Physical Exam - General Limitations: No Limitations General appearance: alert, in no apparent distress - Head Head exam: Present: atraumatic, normocephalic - Eye Eye exam: Present: normal appearance, PERRL, EOMI - ENT ENT exam: Present: mucous membranes moist - Neck Neck exam: Present: normal inspection - Respiratory Respiratory exam: Present: normal lung sounds bilaterally. Absent: respiratory distress - Cardiovascular Cardiovascular Exam: Present: regular rate, normal rhythm. Absent: systolic murmur, diastolic murmur, rubs, gallop - GI/Abdominal GI/Abdominal exam: Present: soft, normal bowel sounds. Absent: distended, tenderness - Extremities Exam Extremities exam: Present: normal inspection - Back Exam Back exam: Present: normal inspection - Neurological Exam Neurological exam: Present: alert, oriented X3, CN II-XII intact. Absent: motor sensory deficit - Psychiatric Psychiatric exam: Present: normal affect, normal mood - Skin Skin exam: Present: warm, dry, intact, normal color. Absent: rash ED Course Vital Signs 04/10/19 04/10/19 04/10/19 13:57 15:49 15:54 Temperature 98.7 F 98.3 F Pulse Rate 105 H 92 H 93 H Respiratory 16 17 17 Rate Blood Pressure 214/116 Blood Pressure 166/90 [Left] O2 Sat by Pulse 99 99 97 Oximetry 04/10/19 15:56 Temperature Pulse Rate Respiratory 16 Rate Blood Pressure Blood Pressure [Left] O2 Sat by Pulse 97 Oximetry ED Medical Decision Making - Lab Data Result diagrams: 04/10/19 14:38 04/10/19 14:38 Lab Results 04/10/19 04/10/19 Range/Units 14:38 14:38 WBC 6.8 (4.5-11.0) K/mm3 RBC 4.66 (3.65-5.03) M/mm3 Hgb 13.1 (10.1-14.3) gm/dl Hct 39.1 (30.3-42.9) % MCV 84 (79-97) fl MCH 28 (28-32) pg MCHC 34 (30-34) % RDW 13.7 (13.2-15.2) % Plt Count 283 (140-440) K/mm3 Lymph % (Auto) 26.3 (13.4-35.0) % Motley % (Auto) 7.8 H (0.0-7.3) % Eos % (Auto) 2.7 (0.0-4.3) % Baso % (Auto) 0.5 (0.0-1.8) % Lymph # 1.8 (1.2-5.4) K/mm3 Motley # 0.5 (0.0-0.8) K/mm3 Eos # 0.2 (0.0-0.4) K/mm3 Baso # 0.0 (0.0-0.1) K/mm3 Seg Neutrophils % 62.7 (40.0-70.0) % Seg Neutrophils # 4.3 (1.8-7.7) K/mm3 Sodium 140 (137-145) mmol/L Potassium 4.5 (3.6-5.0) mmol/L Chloride 101.5 (98-107) mmol/L Carbon Dioxide 28 (22-30) mmol/L Anion Gap 15 mmol/L BUN 15 (7-17) mg/dL Creatinine 1.1 (0.7-1.2) mg/dL Estimated GFR > 60 ml/min BUN/Creatinine Ratio 14 % Glucose 111 H (65-100) mg/dL Calcium 9.4 (8.4-10.2) mg/dL Total Bilirubin 0.20 (0.1-1.2) mg/dL Direct Bilirubin < 0.2 (0-0.2) mg/dL AST 15 (5-40) units/L ALT 13 (7-56) units/L Alkaline Phosphatase 85 (35-129) units/L Total Protein 7.8 (6.3-8.2) g/dL Albumin 3.8 L (3.9-5) g/dL Albumin/Globulin Ratio 1.0 % - Radiology Data Radiology results: report reviewed - Medical Decision Making Catapres was given to the patient prior to me seeing her Catapres not ordered me Patient states her symptoms have completely resolved as far as the headache is concerned Discuss results with patient and her family member L Critical care attestation.: If time is entered above; I have spent that time in minutes in the direct care of this critically ill patient, excluding procedure time. ED Disposition Clinical Impression: Hypertension, Headache Disposition: DC- TO HOME OR SELFCARE Is pt being admited?: No Does the pt Need Aspirin: No Condition: Stable Instructions: Acute Headache (ED), Hypertension (ED) Additional Instructions: return if worse Prescriptions: amLODIPine [Norvasc] 10 mg PO DAILY #30 tab Referrals: PRIMARY CARE,MD [Primary Care Provider] - 3-5 Days [facility] [Provider Group] - 3-5 Days [facility] [Provider Group] - 3-5 Days [facility] [Outside] - 3-5 Days Time of Disposition: 18:08
[2019-04-10 18:48] VITALS: BP 137/66
== END 2019-04-10 18:47 | disposition home or self-care (01) ==
LOC: EEVIPCON 13:48 → ED 13:48
DX: I10 Essential (primary) hypertension (principal); M19.90 Unspecified osteoarthritis, unspecified site; Z79.899 Other long term (current) drug therapy
CPT/HCPCS: 36415; 70450; 80048; 80076; 85025

== ENCOUNTER 2020-07-01 09:00 | Emergency (ER) | payer SELFPAY ==
[2020-07-01] MEDS ORDERED: cloNIDine 0.2 MG TAB PO ONE (09:42)
--- NOTE | 2020-07-01 09:47 | Emergency Department Report ---
ED Headache HPI - General Chief Complaint: Neuro Symptoms/Deficit Stated Complaint: BLURRY VISION, BACK ,SHOULDER Time Seen by Provider: 07/01/20 09:37 - History of Present Illness Initial Comments: 59-year-old female presents to ED with complaint of headache x3 days. Patient also reports associated blurred vision, dizziness, right shoulder pain. Patient states that she normally experiences these symptoms when her blood pressure is elevated. Denies any chest pain or shortness of breath, nausea or vomiting. Patient states she has been out of her blood pressure medication for approximately 3 months, states she was taking HCTZ. Timing/Duration: other (3 days) Quality: severe Head Injury Location: global Modifying Factors: improves with: medication Associated Symptoms: vision changes. denies: fever/chills, nausea/vomiting, stiff neck, weakness Allergies/Adverse Reactions: Allergies No Known Allergies Allergy (Verified 03/21/17 08:39) Home Medications: Ambulatory Orders Losartan [Cozaar] 100 mg PO QDAY #30 tablet 03/28/17 Ondansetron [Zofran TAB] 4 mg PO Q8HR PRN #10 tablet 03/28/17 Pantoprazole [Protonix TAB] 40 mg PO QDAY #30 tablet 03/28/17 amLODIPine 10 mg PO DAILY #30 tab 07/01/20 hydroCHLOROthiazide [HCTZ] 25 mg PO QDAY #30 tablet 07/01/20 ED Review of Systems ROS: Stated complaint: BLURRY VISION, BACK ,SHOULDER Other details as noted in HPI Comment: All other systems reviewed and negative Constitutional: denies: chills, fever Eyes: vision change Respiratory: denies: shortness of breath Cardiovascular: denies: chest pain Gastrointestinal: denies: nausea, vomiting Neurological: headache. denies: weakness, numbness ED Past Medical Hx - Past Medical History Hx Hypertension: Yes Hx Heart Attack/AMI: No Hx Congestive Heart Failure: No Hx Diabetes: No Hx Deep Vein Thrombosis: No Hx Liver Disease: No Hx Arthritis: Yes (LEFT KNEE) Hx Asthma: No Hx COPD: No Hx Tuberculosis: No Hx HIV: No - Surgical History Hx Coronary Stent: No Hx Pacemaker: No Hx Internal Defibrillator: No Additional Surgical History: C - section - Social History Smoking Status: Never Smoker - Medications Home Medications: Home Medications Medication Instructions Recorded Confirmed Last Taken Type Losartan [Cozaar] 100 mg PO QDAY #30 tablet 03/28/17 Unknown Rx Ondansetron [Zofran TAB] 4 mg PO Q8HR PRN #10 tablet 03/28/17 Unknown Rx Pantoprazole [Protonix TAB] 40 mg PO QDAY #30 tablet 03/28/17 Unknown Rx amLODIPine 10 mg PO DAILY #30 tab 07/01/20 Unknown Rx hydroCHLOROthiazide [HCTZ] 25 mg PO QDAY #30 tablet 07/01/20 Unknown Rx ED Physical Exam - General Limitations: No Limitations General appearance: alert, in no apparent distress, obese - Head Head exam: Present: atraumatic, normocephalic - Eye Eye exam: Present: normal appearance, PERRL, EOMI - ENT ENT exam: Present: mucous membranes moist - Neck Neck exam: Present: normal inspection - Respiratory Respiratory exam: Present: normal lung sounds bilaterally. Absent: respiratory distress - Cardiovascular Cardiovascular Exam: Present: regular rate, normal rhythm - GI/Abdominal GI/Abdominal exam: Present: soft. Absent: distended, tenderness - Extremities Exam Extremities exam: Present: normal inspection - Neurological Exam Neurological exam: Present: alert, oriented X3, CN II-XII intact, normal gait. Absent: motor sensory deficit - Psychiatric Psychiatric exam: Present: normal affect, normal mood - Skin Skin exam: Present: warm, dry, intact, normal color ED Course Vital Signs 07/01/20 07/01/20 07/01/20 09:00 09:07 09:27 Temperature 98.2 F Pulse Rate 92 H 106 H 74 Respiratory 18 10 L Rate Blood Pressure 208/110 192/92 Blood Pressure [Left] O2 Sat by Pulse 99 99 Oximetry 07/01/20 07/01/20 07/01/20 09:31 09:35 09:38 Temperature 98.3 F Pulse Rate 95 H 92 H 92 H Respiratory 15 18 18 Rate Blood Pressure 208/111 Blood Pressure 208/110 [Left] O2 Sat by Pulse 97 97 96 Oximetry 07/01/20 07/01/20 07/01/20 09:59 10:01 10:15 Temperature Pulse Rate 89 Respiratory 12 15 12 Rate Blood Pressure 208/111 187/102 187/102 Blood Pressure [Left] O2 Sat by Pulse 99 100 Oximetry 07/01/20 07/01/20 07/01/20 10:31 12:57 14:13 Temperature Pulse Rate 88 Respiratory 10 L 18 18 Rate Blood Pressure 187/102 Blood Pressure 150/72 [Left] O2 Sat by Pulse 99 97 Oximetry ED Medical Decision Making - Radiology Data Radiology results: report reviewed, image reviewed - Medical Decision Making 59-year-old female with headache secondary to elevated blood pressure. Patient has been out of her blood pressure medication for several months now. Systolic BP in the 200s. Patient given clonidine 0.2 mg, with improvement of blood pressure to 150/72, also improvement of headache. CT head was negative for any acute intracranial abnormalities. Patient has no neuro deficits on exam. Patient will be discharged home at this time with prescriptions. Outpatient follow-up given, return precautions given. - Differential Diagnosis Intracranial abnormality, hypertensive headache, hypertensive urgency Critical care attestation.: If time is entered above; I have spent that time in minutes in the direct care of this critically ill patient, excluding procedure time. ED Disposition Clinical Impression: Acute headache, Hypertensive urgency Disposition: DC-01 TO HOME OR SELFCARE Is pt being admited?: No Condition: Stable Instructions: Hypertension (ED) Prescriptions: amLODIPine 10 mg PO DAILY #30 tab hydroCHLOROthiazide [HCTZ] 25 mg PO QDAY #30 tablet Referrals: [facility] [Provider Group] - 3-5 Days [facility] [place] [Outside] - 3-5 Days [facility] MD [Staff Physician] - 3-5 Days Time of Disposition: 11:32
--- NOTE | 2020-07-01 10:16 | Cat Scan Report ---
CT HEAD WITHOUT CONTRAST INDICATION / CLINICAL INFORMATION: headache. TECHNIQUE: Axial imaging performed from the skull apex through the skull base without the use of cont rast. Sagittal and coronal reformatted images. All CT scans at this location are performed using CT dose reduction for ALARA by means of automated exposure control. COMPARISON: 04/10/2019 FINDINGS: CEREBRAL PARENCHYMA: No significant abnormality. No acute territorial infarct. Minimal chronic white matter changes in the frontal lobes is unchanged. HEMORRHAGE: None. EXTRA-AXIAL SPACES: Normal in size and morphology for the patient's age. VENTRICULAR SYSTEM: Mild dilatation of the right occipital horn up to 2.7 x 2.1 cm in axial plane is unchanged. This could indicate an arachnoid cyst. Ventricular size is within normal limits otherwise. MIDLINE SHIFT OR HERNIATION: None. CEREBELLUM / BRAINSTEM: No significant abnormality. CALVARIUM: No significant abnormality. ORBITS: Normal as visualized. PARANASAL SINUSES / MASTOID AIR CELLS: Normal as visualized. SOFT TISSUES of HEAD: No significant abnormality. ADDITIONAL FINDINGS: None. IMPRESSION: No acute intracranial abnormality. No change since 04/10/2019 exam. Signer Name: Josué Li Jr, MD Signed: 07/01/2020 10:11 AM Workstation Name: [id number]
[2020-07-01] MEDS ORDERED: traMADol 50 MG TAB PO ONE (11:31)
[2020-07-01] MEDS ORDERED: IBUPROFEN 800 MG TAB PO ONE (11:31)
[2020-07-01] MEDS ORDERED: traMADol 50 MG TAB ONE (13:43)
[2020-07-01] MEDS ORDERED: IBUPROFEN 800 MG TAB ONE (13:43)
[2020-07-01 14:14] VITALS: BP 150/72
== END 2020-07-01 14:13 | disposition home or self-care (01) ==
LOC: ED 09:00
DX: R51 Headache (principal); I16.0 Hypertensive urgency; M19.90 Unspecified osteoarthritis, unspecified site; Z79.899 Other long term (current) drug therapy
CPT/HCPCS: 70450; 82962; 99283